=== PATIENT | female | born 1935 ===

== ENCOUNTER → 2022-11-05 13:15 | Outpatient (BNVA) | payer MEDICARE, OTHER, SELFPAY | PROVIDERS: PCP Internal Medicine; Visit Provider Nurse Practitioner Family | DX: F03.90 Unspecified dementia, unspecified severity, without behavioral disturbance, psychotic disturbance, mood disturbance, and anxiety (principal); E46 Unspecified protein-calorie malnutrition | CPT/HCPCS: 99202 ==